=== PATIENT | female | born 1995 ===

== ENCOUNTER 2016-08-07 13:20 | Emergency (ER) | payer BC ==
[2016-08-07 13:54] VITALS: BP 114/66
--- NOTE | 2016-08-07 15:09 | UC ---
Throat Pain/Nasal Etienne HPI - HPI Summary HPI Summary: This is an otherwise healthy 20 yo female who presents with complaints of sinus congestion and cough x 1 month. She reports frequent headaches. No fevers. She has been using OTC decongestants frequently without relief. She does report a history of seasonal allergies. No SOB. No CP. No GI complaints. C/ o ear fullness. No tinnitus or hearing changes - History of Current Complaint Chief Complaint: UCRespiratory Stated Complaint: CONGESTION,COUGH Hx Last Menstrual Period: 07/20/16 - Allergies/Home Medications Allergies/Adverse Reactions: Allergies Allergy/AdvReac Type Severity Reaction Status Date / Time Amoxicillin Allergy Hives Verified 08/07/16 13:51 PMH/Surg Hx/FS Hx/Imm Hx Previously Healthy: Yes - Surgical History Surgical History: None - Family History Known Family History: Positive: None - Social History Alcohol Use: Weekly Substance Use Type: None Smoking Status (MU): Never Smoked Tobacco - Immunization History Most Recent Influenza Vaccination: Not the Season Review of Systems Constitutional: Negative Skin: Negative Eyes: Negative ENT: Nasal Discharge Respiratory: Cough Cardiovascular: Negative Gastrointestinal: Negative Genitourinary: Negative Motor: Negative Neurovascular: Negative Musculoskeletal: Negative Neurological: Negative Psychological: Negative All Other Systems Reviewed And Are Negative: Yes Physical Exam Triage Information Reviewed: Yes Appearance: Well-Appearing Vital Signs: Initial Vital Signs Temp 98.4 F 08/07/16 13:49 Pulse 64 08/07/16 13:49 Resp 16 08/07/16 13:49 BP 114/66 08/07/16 13:49 Pulse Ox 100 08/07/16 13:49 Vital Signs Reviewed: Yes ENT: Positive: TM dull, Other: - no TTP over sinuses. Negative: Nasal congestion, TM bulging, TM red, Tonsillar swelling, Tonsillar exudate Neck: Positive: Supple, Nontender, No Lymphadenopathy Respiratory: Positive: Chest non-tender, Lungs clear, Normal breath sounds. Negative: Crackles, Rhonchi, Wheezing Cardiovascular: Positive: RRR, No Murmur Abdominal Exam: Normal Throat Pain/Nasal Course/Dx - Course Course Of Treatment: This is an otherwise healthy 20yo female who presents with a one month history of sinus congestion. Will treat empirically for a sinusitis and recommend initiating a daily antihistamine. Recommended f/u with her PCP for referal to ENT if her symptoms do not resolve with abx and antihistamines - Differential Dx/Diagnosis Differential Diagnosis/HQI/PQRI: Pharyngitis, Sinusitis, Tonsillitis, URI Provider Diagnoses: Sinusitis Discharge - Discharge Plan Condition: Stable Disposition: HOME Prescriptions: Cefdinir [Cefdinir 300 MG CAP] 300 mg PO BID #28 cap Loratadine [Triaminic Allerchews] 10 mg PO DAILY #30 tab Patient Education Materials: Sinusitis (ED) Additional Instructions: Activity: No restrictions Instructions: 1. Please take antibiotics and antihistamine as directed 2. Follow up with your PCP if your symptoms are not improving after 1 week of antibiotics and allergy medications
== END 2016-08-07 15:10 | disposition home or self-care (01) ==
LOC: UCCORT 13:20
DX: J32.9 Chronic sinusitis, unspecified (principal); Z88.1 Allergy status to other antibiotic agents
CPT/HCPCS: 99212; G0463